=== PATIENT | male | born 1940 | race Caucasian/White ===

== ENCOUNTER 2022-04-19 11:35 | Emergency (ER) | payer MEDICARE, OTHER ==
[2022-04-19 12:05] VITALS: BP 160/95; PULSE 94
[2022-04-19 13:29] LABS: ESTIMATED GFR 40 mL/min (>60); TROPONIN I HIGH SENSITIVITY 22.8 pg/mL (<=60.3)
== END 2022-04-19 14:22 | disposition home or self-care (01) ==
LOC: JP.ED 11:35
DX: J84.9 Interstitial pulmonary disease, unspecified (principal); E86.0 Dehydration; R62.7 Adult failure to thrive; Z68.1 Body mass index [BMI] 19.9 or less, adult; Z20.822 Contact with and (suspected) exposure to COVID-19
CPT/HCPCS: 36415; 71045; 80053; 84145; 84484; 85025; 93005; 99285; U0002

== ENCOUNTER 2022-04-20 13:23 | Inpatient (IN) | payer MEDICARE ==
[2022-04-20] MEDS ORDERED: Sucralfate Suspension 1 GM/10 ML Cup PO ONE (14:48)
[2022-04-20] MEDS ORDERED: Pantoprazole 40 MG Tab.CR PO ONE (14:48)
[2022-04-20] MEDS ORDERED: Sodium Chloride 0.9% 10 ML Syringe FLUSH PRN ×2 (14:49→20:28)
[2022-04-20 15:42] LABS: ESTIMATED GFR 35 mL/min (>60)
[2022-04-20] MEDS ORDERED: Lactated Ringers 1,000 ML IV SCH (16:00)
[2022-04-20] MEDS ORDERED: Ampicillin/Sulbactam Na 3 GM in Sodium Chloride 0.9% 100 ML IV ONE (17:47)
[2022-04-20] MEDS ORDERED: Dextrose 5%-Lactated Ringers 1,000 ML IV SCH (18:15)
[2022-04-20] MEDS ORDERED: Albuterol 0.083% 2.5 MG/3 ML Neb Soln NEB PRN (20:28)
[2022-04-20] MEDS ORDERED: Acetaminophen 325 MG Tab PO PRN (20:28)
[2022-04-20] MEDS ORDERED: Sodium Chloride 0.9% 1,000 ML IV SCH (20:28)
[2022-04-20] MEDS ORDERED: Ondansetron 4 MG/2 ML SDV IV PRN (20:28)
[2022-04-20] MEDS: LORazepam 0.5 MG Tab PO SCH (21:44)
[2022-04-21] MEDS: Ampicillin/Sulbactam Na 1.5 GM in Sodium Chloride 0.9% 50 ML IV SCH ×2 (05:23→18:27)
[2022-04-21] MEDS ORDERED: Magnesium Sulfate/Water 2 GM in Premix Bag 1 BAG IV SCH (09:00)
[2022-04-21] MEDS: Apixaban 5 MG Tab PO SCH ×2 (12:24→20:10)
[2022-04-21] MEDS: Montelukast 10 MG Tab PO SCH (12:24)
[2022-04-21] MEDS: Cetirizine 10 MG Tab PO SCH (12:25)
[2022-04-21] MEDS: Magnesium Oxide 400 MG Tab PO SCH ×2 (12:25→20:10)
[2022-04-21] MEDS: LORazepam 0.5 MG Tab PO SCH (20:11)
[2022-04-22] MEDS: Ampicillin/Sulbactam Na 1.5 GM in Sodium Chloride 0.9% 50 ML IV SCH ×2 (06:13→18:15)
[2022-04-22] MEDS ORDERED: Propofol 200 MG/20 ML SDV ONE (07:21)
[2022-04-22] MEDS ORDERED: Pantoprazole 40 MG Vial IVPUSH ONE (07:56)
[2022-04-22] MEDS: Magnesium Oxide 400 MG Tab PO SCH ×2 (08:44→20:21)
[2022-04-22] MEDS: Cetirizine 10 MG Tab PO SCH (08:44)
[2022-04-22] MEDS: Apixaban 5 MG Tab PO SCH ×2 (08:44→20:21)
[2022-04-22] MEDS: Montelukast 10 MG Tab PO SCH (08:45)
[2022-04-22] MEDS: Megestrol 40 MG Tab PO SCH ×2 (13:14→20:21)
[2022-04-22] MEDS: Pantoprazole 40 MG Tab.CR PO SCH (17:50)
[2022-04-22] MEDS: LORazepam 0.5 MG Tab PO SCH (20:23)
[2022-04-23] MEDS: Ampicillin/Sulbactam Na 1.5 GM in Sodium Chloride 0.9% 50 ML IV SCH (06:04)
[2022-04-23] MEDS: Pantoprazole 40 MG Tab.CR PO SCH (07:24)
[2022-04-23] MEDS ORDERED: Pantoprazole 40 MG Tab.CR PO SCH (07:30)
[2022-04-23 07:49] VITALS: BP 169/84; PULSE 66
[2022-04-23] MEDS: Montelukast 10 MG Tab PO SCH (08:12)
[2022-04-23] MEDS: Cetirizine 10 MG Tab PO SCH (08:12)
[2022-04-23] MEDS: Magnesium Oxide 400 MG Tab PO SCH (08:12)
[2022-04-23] MEDS: Apixaban 5 MG Tab PO SCH (08:12)
[2022-04-23] MEDS: Megestrol 40 MG Tab PO SCH (08:12)
== END 2022-04-23 14:00 | disposition home or self-care (01) | DRG 392 ==
LOC: JP.ED 13:23 → JP.MS 18:06
PROVIDERS: ADMIT Hospitalist; ATTEND Hospitalist
PROC: 0DB48ZX Excision of Esophagogastric Junction, Via Natural or Artificial Opening Endoscopic, Diagnostic (ICD-10-PCS; principal; 2022-04-22)
PROC: 0DB68ZX Excision of Stomach, Via Natural or Artificial Opening Endoscopic, Diagnostic (ICD-10-PCS; 2022-04-22)
DX: K57.92 Diverticulitis of intestine, part unspecified, without perforation or abscess without bleeding (principal); K57.32 Diverticulitis of large intestine without perforation or abscess without bleeding; R64 Cachexia; K80.20 Calculus of gallbladder without cholecystitis without obstruction; R68.81 Early satiety; R62.7 Adult failure to thrive; J84.9 Interstitial pulmonary disease, unspecified; Q61.3 Polycystic kidney, unspecified; K80.10 Calculus of gallbladder with chronic cholecystitis without obstruction; Z68.1 Body mass index [BMI] 19.9 or less, adult; Z79.899 Other long term (current) drug therapy; N18.32 Chronic kidney disease, stage 3b; J84.10 Pulmonary fibrosis, unspecified; E86.0 Dehydration; K22.70 Barrett's esophagus without dysplasia; K29.70 Gastritis, unspecified, without bleeding; Z96.649 Presence of unspecified artificial hip joint; H91.90 Unspecified hearing loss, unspecified ear; L40.9 Psoriasis, unspecified; Z87.891 Personal history of nicotine dependence; Z86.718 Personal history of other venous thrombosis and embolism; Z79.01 Long term (current) use of anticoagulants
CPT/HCPCS: 36415; 74176; 80053; 83735; 84100; 84134; 84443; 85025; 96361; 96365; 99285; A9270 ×2; J0295; J3490; J7120; 78227; 80048; 87081; C9113; J2704; J3475; J7030; J7121